=== PATIENT | female | born 1940 | race Two or more races ===

== ENCOUNTER 2018-12-09 13:07 | Outpatient (CLI) | payer OTHER | END 2018-12-09 13:15 | disposition home or self-care (01) | LOC: NUCLEAR 13:07 | DX: M81.0 Age-related osteoporosis without current pathological fracture (principal) ==

== ENCOUNTER 2018-12-17 13:05 | Outpatient (CLI) | payer OTHER | END 2018-12-17 13:29 | disposition home or self-care (01) | LOC: SONOGRAMA 13:05 | DX: E04.2 Nontoxic multinodular goiter (principal); E03.8 Other specified hypothyroidism ==

== ENCOUNTER 2020-12-05 10:32 | Outpatient (CLI) | payer OTHER | END 2020-12-05 10:39 | disposition home or self-care (01) | LOC: RAD 10:32 | PROVIDERS: ATTEND Specialist | DX: J45.998 Other asthma (principal) ==

== ENCOUNTER 2021-05-26 13:55 | Outpatient (CLI) | payer OTHER | END 2021-05-26 14:04 | disposition home or self-care (01) | LOC: RAD 13:55 | PROVIDERS: ATTEND Physical Medicine & Rehabilitation | DX: M54.59 Other low back pain (principal) ==

== ENCOUNTER 2021-10-18 13:07 | Outpatient (CLI) | payer OTHER | END 2021-10-18 13:13 | disposition home or self-care (01) | LOC: RAD 13:07 | PROVIDERS: ATTEND Specialist | DX: J45.998 Other asthma (principal) ==

== ENCOUNTER 2022-01-02 07:48 | Outpatient (CLI) | payer OTHER | END 2022-01-02 07:49 | disposition home or self-care (01) | LOC: NUCLEAR 07:48 | PROVIDERS: ATTEND Internal Medicine | DX: I25.9 Chronic ischemic heart disease, unspecified (principal) | CPT/HCPCS: 78452; 93017; A9500; J0153 ==

== ENCOUNTER 2022-07-12 07:01 | Outpatient (CLI) | payer OTHER | END 2022-07-12 07:02 | disposition home or self-care (01) | LOC: NUCLEAR 07:01 | PROVIDERS: ATTEND Specialist | DX: D35.1 Benign neoplasm of parathyroid gland (principal); Z88.6 Allergy status to analgesic agent | CPT/HCPCS: 78072; A9500 ==